=== PATIENT | female | born 1950 | race Caucasian/White ===

== ENCOUNTER → 2020-11-26 14:41 | Outpatient (CLI) | payer MEDICARE, OTHER, SELFPAY ==
[2020-11-26 15:07] LABS: C-Reactive Protein Quant 2.9 mg/dL (<1.0); Uric Acid 6.8 mg/dL (2.5-6.2)
[2020-11-26 15:12] LABS: Erythrocyte Sedimentation Rate 6 MM/HR (0-20)
== END ==
PROVIDERS: Referring Provider Nurse Practitioner; Visit Provider Nurse Practitioner
DX: M25.40 Effusion, unspecified joint (principal)
CPT/HCPCS: 36415; 84550; 85651; 86140

== ENCOUNTER 2022-08-31 10:51 | Emergency (ER) | payer MEDICARE, OTHER, SELFPAY ==
[2022-08-31 11:00] VITALS: BP 174/89; PULSE 74; RESP 19; TEMP 36.5; O2SAT 100; BMI 33.6
--- NOTE | 2022-08-31 11:27 | DI.US.S_ITS ---
PROCEDURE: US PERIPH VENOUS LOW EXTREM LT INDICATIONS: MED/LAT CALF PAIN. RECENT INJURY. ?DVT VS MUSCLE INJURY. TECHNIQUE: Real-time imaging, as well as color and pulse Doppler interrogation, were performed of the lower extremity deep veins from the inguinal ligament to the popliteal fossa. COMPARISON: None. FINDINGS: The common femoral, femoral and popliteal veins are normally compressible, and free of intraluminal thrombus. Color and pulse Doppler demonstrate normal phasic intraluminal flow. There is normal augmentation response to distal compression maneuver. There is a left knee joint effusion as well as a Tyson cyst measuring 2.2 x 5.8 x 0.7 cm. IMPRESSION: 1. Negative left lower extremity duplex venous ultrasound for DVT. 2. Left knee joint effusion with Tyson cyst. Dictated by: Jessee Wright M.D. on 08/31/2022 at 14:01 Approved by: Jessee Wright M.D. on 08/31/2022 at 14:02
--- NOTE | 2022-08-31 11:27 | DI.RAD.S_ITS ---
PROCEDURE: XR KNEE LT 3V INDICATIONS: Twisting injury last night, effusion? TECHNIQUE: 3 views of the knee were acquired. COMPARISON: None. FINDINGS: Bones: No fractures or dislocations. No suspicious bony lesions. Soft tissues: No joint effusion. No suspicious soft tissue calcifications. IMPRESSION: No evidence acute bony abnormality. If clinical suspicion and/or symptoms persist, further assessment with knee MRI be helpful for further assessment. Dictated by: Jessee Wright M.D. on 08/31/2022 at 11:49 Approved by: Jessee Wright M.D. on 08/31/2022 at 11:50
--- NOTE | 2022-08-31 11:27 | DI.RAD.S_ITS ---
PROCEDURE: XR LUMBAR SPINE 2-3V INDICATIONS: History of old compression fracture, worsening radiculopathy TECHNIQUE: 3 views of the lumbar spine were acquired. COMPARISON: None. FINDINGS: Bones: 5 [id number] vertebrae are present. There is normal bony alignment. No acute vertebral body compression fractures. No suspicious bony lesions. Degenerative disc space loss and discogenic sclerosis at L3-L4. Mild chronic L4 compression. Lower lumbar facet arthropathy. Soft tissues: Overlying bowel gas pattern is normal. No suspicious soft tissue calcifications. IMPRESSION: Degenerative change, old compression. No acute bony abnormality. Comment: Consider nonemergent lumbar spine MRI. Dictated by: Jessee Wright M.D. on 08/31/2022 at 11:50 Approved by: Jessee Wright M.D. on 08/31/2022 at 11:52
--- NOTE | 2022-08-31 11:41 | ED.EXTPRO ---
HPI - Extremity Problem <Raquel Hiro MaymirzaKWAMEP - Last Filed: 08/31/22 14:34> General Chief complaint: Extremity Problem,Nontraumatic Stated complaint: sent by LT leg bruising/knee pain/ankle swollen Time Seen by Provider: 08/31/22 11:10 Source: patient Mode of arrival: Family Vehicle History of Present Illness HPI Narrative: This is a 72-year-old female with history of a left total hip replacement, a fall in March onto her left knee that was not evaluated until last month when she had an x-ray over his [place] due to ongoing left knee pain just below her patella. That was negative for abnormality. She presents today had recommendation from her primary care provider after she had a twisting injury last night while she got up to use the restroom from sleep and states that when she started walking on her left knee it was intensely painful. She states that she also has a history of low back pain and has had left-sided sciatica and states that she is had some symptoms of this which has gotten worse over the last few days as well. She states it is hard to determine what is coming from her knee and what is coming from her low back because the left leg is so painful. She denies circumferential edema, she has tenderness to the medial aspect of her gastrocnemius, denies any known trauma or injury other than when she walked last night she had severe pain. Related Data Home Medications Medication Instructions Recorded Confirmed aspirin 325 mg tablet 325 mg PO DAILY 11/26/20 11/26/20 chlorthalidone 25 mg tablet 25 mg PO DAILY 11/26/20 11/26/20 lovastatin 10 mg tablet 10 mg PO DAILY 11/26/20 11/26/20 metformin 500 mg tablet 500 mg PO TID 11/26/20 11/26/20 valsartan 80 mg tablet 80 mg PO DAILY 11/26/20 11/26/20 Previous Rx's Medication Instructions Recorded colchicine 0.6 mg capsule 0.6 mg PO DAILY #5 caps 11/26/20 diclofenac sodium 1 % topical gel 2 g topical QID PRN knee pain #100 08/31/22 (Voltaren Arthritis Pain) grams hydrocodone 5 mg-acetaminophen 325 1 tab PO BID PRN pain #10 tabs 08/31/22 mg tablet lidocaine 5 % topical patch 1 patch topical DAILY PRN Low back 08/31/22 (Lidoderm) pain #30 ea methocarbamol 500 mg tablet 500 mg PO TID PRN muscle 08/31/22 pain/spasm #20 tabs prednisone 20 mg tablet 20 mg PO DAILY #4 tabs 08/31/22 Allergies Allergy/AdvReac Type Severity Reaction Status Date / Time morphine Allergy Mild Verified 08/31/22 11:06 Review of Systems <DRISS Walters - Last Filed: 08/31/22 14:34> Review of Systems ROS Unobtainable: All systems reviewed & are unremarkable except as noted in HPI and below Patient History <DRISS Walters - Last Filed: 08/31/22 14:34> Social History Smoking Status: Never smoker Smoking Status: Never smoker alcohol intake frequency: holidays/special occasions only Substance Use Type: does not use Exam <DRISS Walters - Last Filed: 08/31/22 14:34> Narrative Exam Narrative: Reviewed vitals signs and nursing notes. General: Pleasant, sitting upright, in no acute distress, well groomed, afebrile HEENT: symmetrical facial expressions, moist mucous membranes, neck is supple CV: regular rate and rhythm, warm extremities Respiratory: normal work of breathing, without tachypnea or hypoxia. GI: abdomen soft, nondistended, without CVA tenderness bilaterally. MSK: moves all extremities, no weakness, normal tone, ambulatory without deficit, left knee with tenderness over MCL, mild tenderness over LCL, patellar tendon tenderness however it is present, no increased laxity with varus and valgus testing, negative Phillip's, patient is neurovascularly intact with palpable pulse to her left foot and brisk cap refill. No circumferential edema or erythema, no mild ecchymosis to the lateral aspect of her left knee but is not associated with point tenderness. Patient does have point tenderness on the medial aspect of her proximal gastrocnemius on the left, no varicose veins or superficial varicosities Skin: brisk capillary refill, without rash or wound Neuro: clear speech and normal cognition, A&O x3, GCS 15, no focal motor or sensation deficits Initial Vital Signs Initial Vital Signs: Vital Signs Temperature 97.7 F 08/31/22 11:00 Pulse Rate 74 06/07/23 11:00 Respiratory Rate 19 08/31/22 11:00 Blood Pressure 174/89 H 08/31/22 11:00 Pulse Oximetry 100 08/31/22 11:00 Oxygen Delivery Method Room Air 08/31/22 11:00 <Bora Lei MD - Last Filed: 09/03/22 12:42> Initial Vital Signs Initial Vital Signs: Vital Signs Temperature 97.7 F 08/31/22 11:00 Pulse Rate 74 08/31/22 11:00 Respiratory Rate 19 08/31/22 11:00 Blood Pressure 174/89 H 08/31/22 11:00 Pulse Oximetry 100 08/31/22 11:00 Oxygen Delivery Method Room Air 08/31/22 11:00 Course <DRISS Walters - Last Filed: 08/31/22 14:34> Orders Ordered: Discontinued Medications Acetaminophen (Acetaminophen 325 Mg Tablet) 975 mg PO NOW ONE Stop: 08/31/22 11:28 Last Admin: 08/31/22 11:44 Dose: 975 mg Documented By: BRUCE Ketorolac Tromethamine (Ketorolac 30 Mg/Ml Vial) 15 mg IM NOW ONE Stop: 08/31/22 11:28 Last Admin: 08/31/22 11:45 Dose: 15 mg Documented By: BRUCE Lidocaine (Lidocaine Patch 1 Each Adh..Patch) 1 each TOP NOW ONE Stop: 08/31/22 11:28 Last Admin: 08/31/22 11:44 Dose: 1 each Documented By: BRUCE Prednisone (Prednisone 20 Mg Tablet) 40 mg PO NOW ONE Stop: 08/31/22 11:28 Last Admin: 08/31/22 11:45 Dose: 40 mg Documented By: BRUCE Vital Signs Vital signs: Vital Signs - 8 hr 08/31/22 11:00 Temperature 97.7 F Pulse Rate 74 Respiratory Rate 19 Blood Pressure 174/89 H Pulse Oximetry 100 Oxygen Delivery Method Room Air <Bora Lei MD - Last Filed: 09/03/22 12:42> Orders Ordered: Discontinued Medications Acetaminophen (Acetaminophen 325 Mg Tablet) 975 mg PO NOW ONE Stop: 08/31/22 11:28 Last Admin: 08/31/22 11:44 Dose: 975 mg Documented By: BRUCE Ketorolac Tromethamine (Ketorolac 30 Mg/Ml Vial) 15 mg IM NOW ONE Stop: 08/31/22 11:28 Last Admin: 08/31/22 11:45 Dose: 15 mg Documented By: BRUCE Lidocaine (Lidocaine Patch 1 Each Adh..Patch) 1 each TOP NOW ONE Stop: 08/31/22 11:28 Last Admin: 08/31/22 11:44 Dose: 1 each Documented By: BRUCE Prednisone (Prednisone 20 Mg Tablet) 40 mg PO NOW ONE Stop: 08/31/22 11:28 Last Admin: 08/31/22 11:45 Dose: 40 mg Documented By: BRUCE Vital Signs Vital signs: Vital Signs - 8 hr 08/31/22 11:00 Temperature 97.7 F Pulse Rate 74 Respiratory Rate 19 Blood Pressure 174/89 H Pulse Oximetry 100 Oxygen Delivery Method Room Air MDM - Extremity (Nontraumatic) <DRISS Walters - Last Filed: 08/31/22 14:34> Imaging Data Lumbar spine XR: Radiologist's Impression: [place] [address] XRay Report Signed Patient: Zack Andujar MR#: [id number] : 1950 Acct:[id number] Age/Sex: 72 / F Date of Service: 08/31/22 Loc: ED Accession Number: [id number] ?? Procedure: XR lumbar spine 2-3V Ordering Provider: Raquel Marie PROCEDURE:? XR LUMBAR SPINE 2-3V ? INDICATIONS:? History of old compression fracture, worsening radiculopathy ? TECHNIQUE:? 3 views of the lumbar spine were acquired.? ? COMPARISON:? None. ? FINDINGS:? ? Bones:? 5 [id number] vertebrae are present.? There is normal bony alignment.? No acute vertebral body compression fractures.? No suspicious bony lesions.? Degenerative disc space loss and discogenic sclerosis at L3-L4.? Mild chronic L4 compression.? Lower lumbar facet arthropathy. ? Soft tissues:? Overlying bowel gas pattern is normal.? No suspicious soft tissue calcifications.? ? ? IMPRESSION:? Degenerative change, old compression.? No acute bony abnormality. ? Comment:? Consider nonemergent lumbar spine MRI. ? ? Dictated by: Jessee Wright M.D. on 08/31/2022 at 11:50 ? ? Approved by: Jessee Wright M.D. on 08/31/2022 at 11:52 ? LE Venous dopper DVT: Radiologist's Impression: PROCEDURE:? US PERIPH VENOUS LOW EXTREM LT ? INDICATIONS:? MED/LAT CALF PAIN. RECENT INJURY. ?DVT VS MUSCLE INJURY. ? TECHNIQUE:? Real-time imaging, as well as color and pulse Doppler interrogation, were performed of the lower extremity deep veins from the inguinal ligament to the popliteal fossa.? ? COMPARISON:? None. ? FINDINGS:? The common femoral, femoral and popliteal veins are normally compressible, and free of intraluminal thrombus.? Color and pulse Doppler demonstrate normal phasic intraluminal flow.? There is normal augmentation response to distal compression maneuver. ? ? There is a left knee joint effusion as well as a Tyson cyst measuring 2.2 x 5.8 x 0.7 cm. ? ? IMPRESSION:? ? 1. Negative left lower extremity duplex venous ultrasound for DVT. ? 2. Left knee joint effusion with Tyson cyst.? ? ? Dictated by: Jessee Wright M.D. on 08/31/2022 at 14:01 ? ? Approved by: Jessee Wright M.D. on 08/31/2022 at 14:02 ? Extremity x-ray #1: Radiologist's Impression: PROCEDURE:? XR KNEE LT 3V ? INDICATIONS:? Twisting injury last night, effusion? ? TECHNIQUE:? 3 views of the knee were acquired.? ? COMPARISON:? None. ? FINDINGS:? ? Bones:? No fractures or dislocations.? No suspicious bony lesions.? ? Soft tissues:? No joint effusion.? No suspicious soft tissue calcifications.? ? ? IMPRESSION:? No evidence acute bony abnormality. ? If clinical suspicion and/or symptoms persist, further assessment with knee MRI be helpful for further assessment. ? ? Dictated by: Jessee Wright M.D. on 08/31/2022 at 11:49 ? ? Approved by: Jessee Wright M.D. on 08/31/2022 at 11:50 ? MDM Narrative Medical decision making narrative: Chief Complaint: Left knee pain Primary historian: Patient Multiple etiologies for patient's complaint considered including, but not limited to: Muscular strain, ligamental sprain, meniscus injury, osteoarthritis, knee effusion, pathologic fracture, radicular pain from lumbar spine I have independently reviewed the patient's vital signs and nursing notes as well as prior records if available. My interpretation of imaging: Lumbar x-ray obtained as patient has history of prior compression fracture and complaint of sciatica, no new or acute findings on her lumbar film other than degenerative changes Left knee x-ray without effusion, without acute fracture or other acute abnormality Course of care: Patient had a lengthy wait for her ultrasound, x-ray of her left knee does not show effusion, peripheral venous lower extremity left shows a knee joint effusion as well as a Tyson cyst measuring 2.2 x 5.8 x 0.7 cm. Negative for DVT, discuss these results with the patient, this explains why she has some dependent edema from this area. The Tyson cyst is palpable. No evidence of infection. Patient is recommended to follow-up with orthopedics for possible meniscal injury, MCL or other ligamental injury due to her chronic knee pain since her injury in March with knee effusion. Patient does have a history of gout, we discussed that this is possible to be flare of gout as well. She is taking allopurinol daily, states she has not missed doses, denies any other areas of pain that would signify this as being gout. She will follow up with her primary care provider, understands to ask for an MRI as an outpatient and follow-up with orthopedics and physical therapy as indicated. She was given methocarbamol, lidocaine patches, Voltaren gel, hydrocodone to use as needed and prednisone for the next 4 days. She states that she tolerates ibuprofen well and she is encouraged to use 600 mg every 6 hours with food and water for a maximum of 5 days. She will ice, rest, a wide Deandre bandage was wrapped around her knee for additional support as she endorses loss of proprioception and sensation of instability. Social considerations that may affect disposition: none Questions are addressed and there is agreement with the plan and for follow-up. I consulted with the ED attending physician Dr. Lei as needed for higher level of care considerations and they were available for discussion and recommendations regarding plan of care and diagnostic testing. Patient is appropriate for outpatient management. Discharge Plan Departure Patient Disposition: Home Clinical Impression: History of left hip replacement, Degenerative disc disease, lumbar, Acute left lumbar radiculopathy, Acute joint effusion Knee MCL sprain Qualifiers: Encounter type: initial encounter Laterality: left Qualified Code(s): S83.412A - Sprain of medial collateral ligament of left knee, initial encounter Traumatic ecchymosis of left knee Qualifiers: Encounter type: initial encounter Qualified Code(s): S80.02XA - Contusion of left knee, initial encounter Tyson's cyst Qualifiers: Laterality: left Qualified Code(s): M71.22 - Synovial cyst of popliteal space [Tyson], left knee Instructions: Tyson Cyst, Degenerative Disc Disease, DI for Knee Sprain, DI for Knee Effusion, Lumbar Radiculopathy Activity Restrictions/Additional Instructions: *You have been diagnosed with degenerative changes in your spine without any acute changes on your x-ray today, but the ultrasound does show a joint effusion even though the x-ray does not. This is likely related to either ligamental injury or meniscal injury to your left knee. This is good to know. Please schedule follow-up at [facility] for another evaluation. See if your primary care provider will order you an MRI of your left knee for here at this hospital. Thin get in with Orthopedics next week to evaluate the source of this pain. A lot will come from the evaluation. You have a history of gout, this could be related to gout as a possibility. The steroid and anti-inflammatories will be helpful. Please take a leave or ibuprofen occasionally as needed for your pain. Use a muscle relaxer for muscle spasm like pain, lidocaine patches over your low back where it is most painful, and use Tylenol and hydrocodone as needed for your pain. Please avoid constipation with this medication take MiraLax concurrently. You may use an Deandre bandage to help provide some stability to this left knee if it feels like it is unstable. Icing will be more helpful than heat, see if this helps with your daily pain. *What to do: *Please continue to take your regular medications as directed. [ x] New medication prescriptions sent to your pharmacy: [[facility] ] [ ] New medication written as a paper prescription [ ] No new medications given *Please call and schedule follow up with your primary care provider in 2-3 days, at least for an update. Let them know you were seen in the Emergency Department for the above problem. We will electronically transmit a record of today's note if your PCP or specialist is in our system. *If you do not have a primary care provider please contact [phone] to establish care with one of the [facility] primary care providers. *Return to the Emergency Department for worsening symptoms, inability to keep liquids down, fever greater than 101F, chills, or other concerning symptom. Prescriptions: New methocarbamol 500 mg tablet 500 mg PO TID PRN (Reason: muscle pain/spasm) Qty: 20 0RF lidocaine [Lidoderm] 5 % adhesive patch,medicated 1 patch topical DAILY PRN (Reason: Low back pain) Qty: 30 0RF Rx Instructions: leave on most painful area for up to 12 hrs diclofenac sodium [Voltaren Arthritis Pain] 1 % gel 2 g topical QID PRN (Reason: knee pain) Qty: 100 3RF prednisone 20 mg tablet 20 mg PO DAILY Qty: 4 0RF hydrocodone-acetaminophen 5-325 mg tablet 1 tab PO BID PRN (Reason: pain) Qty: 10 0RF No Action metformin 500 mg tablet 500 mg PO TID lovastatin 10 mg tablet 10 mg PO DAILY valsartan 80 mg tablet 80 mg PO DAILY chlorthalidone 25 mg tablet 25 mg PO DAILY aspirin 325 mg tablet 325 mg PO DAILY colchicine 0.6 mg capsule 0.6 mg PO DAILY Qty: 5 0RF Rx Instructions: Take two pills initially then 1 pill an hour after, then 1 pill each day Referrals: [facility] [Provider Group] Latrice Melvin MD [Primary Care Provider] - Stand Alone Forms: Patient Portal/API <Bora Lei MD - Last Filed: 09/03/22 12:42> Cosign ED Attending Cosignature Attestation: I was immediately available in the department for consultation. This documentation has been reviewed and I agree with assessment and plan. Supervised by Bora Lei MD
[2022-08-31] MEDS: ACETAMINOPHEN 325 MG TABLET 975 MG PO (11:44)
[2022-08-31] MEDS: LIDOCAINE PATCH 1 EACH ADH..PATCH TOP (11:44)
[2022-08-31] MEDS: predniSONE 20 MG TABLET 40 MG PO (11:45)
[2022-08-31] MEDS: KETOROLAC 30 MG/ML VIAL 15 MG IM (11:45)
== END 2022-08-31 14:32 | disposition home or self-care (01) ==
PROVIDERS: Emergency Provider Nurse Practitioner Critical Care Medicine; PCP Family Medicine
DX: S83.412A Sprain of medial collateral ligament of left knee, initial encounter (principal); S80.02XA Contusion of left knee, initial encounter; M71.22 Synovial cyst of popliteal space [Baker], left knee; X50.1XXA Overexertion from prolonged static or awkward postures, initial encounter; M51.16 Intervertebral disc disorders with radiculopathy, lumbar region
CPT/HCPCS: 72100; 73562; 93971; 96372; 99284; J1885

== ENCOUNTER → 2022-09-13 16:56 | Outpatient (CLI) | payer MEDICARE, OTHER, SELFPAY ==
--- NOTE | 2022-09-13 16:58 | DI.MRI.S_ITS ---
PROCEDURE: MR KNEE LT WO CON INDICATIONS: Other meniscus derangements, unspecified meniscus TECHNIQUE: Noncontrast sagittal PD fast spin echo and T2 fast spin echo with fat saturation, sagittal 3-D FLASH with fat saturation; coronal T1 spin echo and PD fast spin echo with fat saturation, and axial PD fast spin echo with fat saturation through the knee. COMPARISON: [facility], CR, XR KNEE LT 3V, 08/31/2022, 11:26. FINDINGS: Image quality: Excellent. Menisci: There is moderate amorphous high signal intensity within the middle and peripheral thirds of the medial meniscal body, demonstrating inferior articular surface extension, indicating degenerative tearing. Linear horizontal and amorphous high signal intensity within the inner, middle, and peripheral thirds of the anterior horn lateral meniscus is present demonstrating superior articular surface extension, indicating complex tearing. Cruciate ligaments: There is minimal posterior bowing of the anterior cruciate ligament. Posterior cruciate ligament demonstrates mild T2 signal elevation within its midportion. Medial structures: The medial collateral ligament appears intact. Visualized portions of the pes anserinus tendons appear normal. No abnormal bursal fluid. Lateral structures: The lateral collateral ligament demonstrates moderate T2 signal elevation at the femoral origin. The long and short heads of the biceps femoris tendon appear intact. The popliteus tendon appears normal. Iliotibial band appears normal. Anterior structures: The quadriceps and patellar tendons appear intact. Mild T2 signal elevation within the quadriceps and patellar tendons at the patellar insertion sites. Patellar alignment is normal. No femoral trochlear dysplasia or ventral trochlear prominence. No edema in the infrapatellar fat pad. Bones and cartilage: No bone marrow contusions or fractures. Mild articular cartilage loss diffusely overlies the weight-bearing aspects of the medial femoral condyle and medial tibial plateau. Joint space: There is a small knee joint effusion. No Tyson's cyst. Normal appearing synovial plicae are incidentally noted. IMPRESSION: 1. Partial-thickness tears of the anterior and posterior cruciate ligaments. 2. Medial and lateral meniscal tearing. 3. Partial-thickness lateral collateral ligament tear. 4. Knee joint effusion. 5. Mild quadriceps and patellar tendinopathy. Dictated by: Ramon Elizabeth M.D. on 09/14/2022 at 8:42 Approved by: Ramon Elizabeth M.D. on 09/14/2022 at 8:44
== END ==
PROVIDERS: PCP Family Medicine; Referring Provider Physician Assistant Medical; Visit Provider Physician Assistant Medical
DX: S83.242A Other tear of medial meniscus, current injury, left knee, initial encounter (principal); S83.282A Other tear of lateral meniscus, current injury, left knee, initial encounter; S83.512A Sprain of anterior cruciate ligament of left knee, initial encounter; S83.522A Sprain of posterior cruciate ligament of left knee, initial encounter; S83.422A Sprain of lateral collateral ligament of left knee, initial encounter; M25.462 Effusion, left knee
CPT/HCPCS: 73721

== ENCOUNTER → 2024-01-02 11:24 | Outpatient (CLI) | payer MEDICARE, OTHER, SELFPAY ==
--- NOTE | 2024-01-02 11:27 | DI.RAD.S_ITS ---
PROCEDURE: XR LUMBAR SPINE 2-3V INDICATIONS: b/l low back pain, acute on chronic after fall 3 days ago TECHNIQUE: 3 views of the lumbar spine were acquired. COMPARISON: [facility], , XR LUMBAR SPINE 2-3V, 08/31/2022, 11:26. FINDINGS: Bones: 5 [id number] vertebrae are present. There is normal bony alignment. No vertebral body compression fractures. No suspicious bony lesions. Convex left thoracolumbar scoliosis. Diffuse disc space narrowing and hypertrophic facet joints particularly in the lower lumbar spine. No fracture or malalignment Soft tissues: Overlying bowel gas pattern is normal. No suspicious soft tissue calcifications. IMPRESSION: Degenerative disc disease and arthropathy particularly lower lumbar spine. Thoracolumbar levoscoliosis Approved by: Michael Huang M.D. on 01/02/2024 at 17:49
== END ==
PROVIDERS: PCP Family Medicine; Referring Provider Physician Assistant; Visit Provider Physician Assistant
DX: M47.816 Spondylosis without myelopathy or radiculopathy, lumbar region (principal); M51.360 Other intervertebral disc degeneration, lumbar region with discogenic back pain only; M41.9 Scoliosis, unspecified
CPT/HCPCS: 72100